=== PATIENT | female | born 1950 | race American Indian/Alaskan Native ===

== ENCOUNTER 2022-11-07 14:03 | Emergency (ER) | payer MEDICARE, SELFPAY ==
[2022-11-07 14:35] VITALS: BP 136/62; PULSE 75; RESP 16; TEMP 36.6; O2SAT 100; BMI 26.6
--- NOTE | 2022-11-07 14:43 | DI.RAD.S_ITS ---
PROCEDURE: XR KNEE LT 3V INDICATIONS: fall one week ago, ongoing pain can't bear weight TECHNIQUE: 3 views of the knee were acquired. COMPARISON: None. FINDINGS: Bones: No fractures or dislocations. No suspicious bony lesions. Soft tissues: Small effusion.. No suspicious soft tissue calcifications. IMPRESSION: Small effusion without fracture identified. Dictated by: Ricco Hanks M.D. on 11/07/2022 at 15:41 Approved by: Ricco Hanks M.D. on 11/07/2022 at 15:42
--- NOTE | 2022-11-07 14:43 | DI.RAD.S_ITS ---
PROCEDURE: XR KNEE RT 3V INDICATIONS: fall one week ago, ongoing pain can't bear weight TECHNIQUE: 3 views of the knee were acquired. COMPARISON: None. FINDINGS: Bones: No fractures or dislocations. No suspicious bony lesions. Soft tissues: No joint effusion. No suspicious soft tissue calcifications. IMPRESSION: No acute fracture. Dictated by: Ricco Hanks M.D. on 11/07/2022 at 15:43 Approved by: Ricco Hanks M.D. on 11/07/2022 at 15:45
[2022-11-07 15:48] VITALS: BP 139/65; PULSE 63; O2SAT 98
--- NOTE | 2022-11-07 16:07 | ED_ITS ---
HPI - Extremity Injury (Lower) General Chief Complaint: Extremity Injury, Lower Stated Complaint: pain in bilateral knees from fall last Sat. Time Seen by Provider: 11/07/22 16:06 Source: patient Mode of arrival: Wheelchair Limitations: no limitations History of Present Illness HPI Narrative: This 71-year-old female presents with complaint of bilateral knee pain. Patient states she fell last Wednesday. She states she tripped on some rope the got wrapped around her feet and fell onto both knees. She states pain is still present still painful to weightbear the left more so than the right. Patient states that her the swelling is starting to improve. The pain is improving a little bit with just movement while sitting but is still quite uncomfortable. She is been using crutches to get around the house. She is been taking Tylenol extra strength twice daily for pain management. Patient denies any numbness or tingling. She denies any new or reoccurring falls. She states no medical issues she does not take any medications daily. She denies prior surgeries. No tobacco, no alcohol, occasional THC. Patient states she did have x-rays about a week ago at [facility] she was told they were negative. Related Data Previous Rx's Medication Instructions Recorded meloxicam 7.5 mg tablet 7.5 mg PO BID PRN pain #10 tabs 11/07/22 Allergies Allergy/AdvReac Type Severity Reaction Status Date / Time No Known Drug Allergies Allergy Verified 11/07/22 14:38 Review of Systems Review of Systems ROS Unobtainable: All systems reviewed & are unremarkable except as noted in HPI and below Patient History Social History Smoking Status: Never smoker Smoking Status: Never smoker Substance Use Type: marijuana Exam Narrative Exam Narrative: GENERAL: Alert and oriented x three, mild distress. HEENT: Head normocephalic, atraumatic, EOMI, pupils reactive, face symmetric, moist mucous membranes NECK: Supple, full range of motion CARDIOVASCULAR: Regular rate and rhythm without murmurs, rubs or gallops. RESPIRATORY: Breath sounds equal bilaterally, no wheezes rales or rhonchi. ABDOMEN: Soft, nontender. Normoactive bowel sounds all 4 quadrants. No guarding or rebound, rigidity, no mass : No CVA tenderness EXTREMITIES: Normal range of motion, no clubbing or edema. Neurovascularly intact. Patient has some ecchymosis to the anterior left knee greenish in coloration. Slight swelling bilaterally. She is range of motion with active and passive movement. Right knee patient does have tenderness with anterior drawer. Patient's valgus varus testing is negative. She is slightly tender over the patella but otherwise no bony tenderness. Left knee patient has tenderness with had positive valgus, she has mild tenderness over the patella and mild tenderness over the medial tibial plateau. NEUROLOGICAL: Cranial nerves II through XII grossly intact. Moving all extremities SKIN: Warm, dry, no petechiae, no rashes or lesions. Initial Vital Signs Initial Vital Signs: Vital Signs Temperature 98 F 11/07/22 14:35 Pulse Rate 75 11/07/22 14:35 Respiratory Rate 16 11/07/22 14:35 Blood Pressure 136/62 11/07/22 14:35 Pulse Oximetry 100 11/07/22 14:35 Oxygen Delivery Method Room Air 11/07/22 14:35 Course Orders Ordered: ED Orders 11/07/22 14:43 XR knee LT 3V Stat XR knee RT 3V Stat Discontinued Medications Ibuprofen (Ibuprofen 400 Mg Tablet) 800 mg PO NOW ONE Stop: 11/07/22 16:31 Last Admin: 11/07/22 16:46 Dose: 800 mg Vital Signs Vital signs: Vital Signs - 8 hr 11/07/22 14:35 Temperature 98 F Pulse Rate 75 Respiratory Rate 16 Blood Pressure 136/62 Pulse Oximetry 100 Oxygen Delivery Method Room Air MDM - Extremity Injury (Lower) Imaging Data Extremity x-ray #1: Radiologist's Impression: Close Knee X-Ray (Signed) Ricco Hanks - 11/07/22 Knee X-Ray (Signed) Ricco Hanks - 11/07/22 Launch?[address] [address] XRay Report Signed Patient: Sana Tyson MR#: [id number] : 1950 Acct:[id number] Age/Sex: 71 / F Date of Service: 11/07/22 Loc: ED Accession Number: [id number] ?? Procedure: XR knee RT 3V Ordering Provider: Sera Neff D.O. PROCEDURE:? XR KNEE RT 3V ? INDICATIONS:? fall one week ago, ongoing pain can't bear weight ? TECHNIQUE:? 3 views of the knee were acquired.? ? COMPARISON:? None. ? FINDINGS:? ? Bones:? No fractures or dislocations.? No suspicious bony lesions.? ? Soft tissues:? No joint effusion.? No suspicious soft tissue calcifications.? ? ? IMPRESSION:? No acute fracture.? ? ? Dictated by: Ricco Hanks M.D. on 11/07/2022 at 15:43 ? ? Approved by: Ricco Hanks M.D. on 11/07/2022 at 15:45? Extremity x-ray #2: Radiologist's Impression: [address] [address] XRay Report Signed Patient: Sana Tyson MR#: [id number] : 1950 Acct:[id number] Age/Sex: 71 / F Date of Service: 11/07/22 Loc: ED Accession Number: [id number] ?? Procedure: XR knee LT 3V Ordering Provider: Sera Neff D.O. PROCEDURE:? XR KNEE LT 3V ? INDICATIONS:? fall one week ago, ongoing pain can't bear weight ? TECHNIQUE:? 3 views of the knee were acquired.? ? COMPARISON:? None. ? FINDINGS:? ? Bones:? No fractures or dislocations.? No suspicious bony lesions.? ? Soft tissues:? Small effusion..? No suspicious soft tissue calcifications.? ? ? IMPRESSION:? Small effusion without fracture identified. ? ? Dictated by: Ricco Hanks M.D. on 11/07/2022 at 15:41 ? ? Approved by: Ricco Hanks M.D. on 11/07/2022 at 15:42?? MDM Narrative Medical decision making narrative: This is a 71-year-old female who comes emergency department after ground level fall approximately a week ago patient had x-ray imaging afterwards this was at another facility she states it was negative. Patient's exam does show some d iscomfort particularly with valgus testing on the knee and anterior drawer on the other knee. Patient does have an effusion on the left, patient has been walking her pain has been slowly improving but she is quite uncomfortable she has less pain in her right consistent with having an effusion on her left. She has been using crutches to get around but finds it uncomfortable. She is been doing Tylenol twice daily will increase this to 4 times daily as needed at a 1000 mg and discussed adding NSAID for the short term. We discussed follow-up with orthopedic surgery if symptoms are still not improving as there is potential for internal derangement to the knee. Discharge Plan Departure Patient Disposition: Home Clinical Impression: Effusion of knee joint, left, Knee pain, right Instructions: DI for Knee Sprain Activity Restrictions/Additional Instructions: Follow-up for recheck. If your pain continues to persist beyond the next week I would recommend following up with Orthopedic surgery for more evaluation. Referral is included below, call Wednesday morning to set up an appointment. There is an effusion of the left knee but no fractures or breaks appreciated to the bones on either knee. You can take Tylenol up to a 1000 mg every 6 hours as needed for pain and/or meloxicam 7.5 mg every 12 hours as needed. Prescription sent to [id number] Splint Care: Keep splint clean and dry. Elevated affected body part to decrease swelling. OK to use ice pack on the affected body part. Use for 15-20 minutes each time, for 5-6x per day. If you develop worsening pain, numbness, tingling, discoloration of the affected body part, either see your doctor for an urgent re-assessment, or return to the Emergency Department. Return to the Emergency Department for any new or worsening symptoms. Prescriptions: New meloxicam 7.5 mg tablet 7.5 mg PO BID PRN (Reason: pain) Qty: 10 0RF Referrals: Heath Begum MD [Physician] - Maru Garza MD [Primary Care Provider] - Stand Alone Forms: Patient Portal/API
--- NOTE | 2022-11-07 16:07 | PC.NURSE ---
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 Complains of constant numbness and tingling to her left leg from about her mid-thigh down and barely able to put weight on it. Pt has some swelling and bruising to her left knee. No pelvic instability noted or pelvic pain reported.
[2022-11-07] MEDS: IBUPROFEN 400 MG TABLET 800 MG PO (16:46)
--- NOTE | 2022-11-07 17:11 | PC.NURSE ---
Oscar bandage wrap applied to each knee per provider verbal direction. Ice packs provided.
[2022-11-07 17:14] VITALS: BP 176/76; PULSE 64; O2SAT 99
[2022-11-07 17:15] VITALS: BP 168/78; PULSE 65; O2SAT 99
[2022-11-07 17:30] VITALS: PULSE 67; O2SAT 99
[2022-11-07 17:38] VITALS: BP 149/67; PULSE 66; O2SAT 99
== END 2022-11-07 17:45 | disposition home or self-care (01) ==
PROVIDERS: Emergency Provider Emergency Medicine; PCP Internal Medicine
DX: M25.462 Effusion, left knee (principal); M25.561 Pain in right knee
CPT/HCPCS: 73562; 99283